=== PATIENT | female | born 1985 | race African-American/Black ===

== ENCOUNTER 2018-03-31 00:58 | Emergency (ER) | payer OTHER ==
[~2018-03-31] VITALS: Ht 162.6 cm; Wt 79.4 kg
[2018-03-31] MEDS ORDERED: NORCO 5-325 TA1 EACH PO (03:10)
[2018-03-31] MEDS ORDERED: AUGMENTIN 875-1 EACH PO (03:10)
[2018-03-31 03:29] VITALS: BP 134/87
[2018-03-31 03:32] LABS: AMP/METHAMP Negative (Negative); BARBITURATES Negative (Negative); BENZODIAZEPINES Negative (Negative); COCAINE Negative (Negative); METHADONE Negative (Negative); OPIATES Negative (Negative); PCP Negative (Negative)
== END 2018-03-31 03:30 | disposition home or self-care (01) ==
LOC: ER 00:58
PROVIDERS: Emergency Medicine
DX: S02.81XA Fracture of other specified skull and facial bones, right side, initial encounter for closed fracture (principal); Y04.2XXA Assault by strike against or bumped into by another person, initial encounter; Y93.89 Activity, other specified; Y92.89 Other specified places as the place of occurrence of the external cause; Y99.8 Other external cause status